=== PATIENT | female | born 1995 | race Hispanic/Latino ===

== ENCOUNTER 2021-12-19 15:30 | Emergency (ER) | payer OTHER ==
[~2021-12-19] VITALS: Ht 165.1 cm; Wt 114.9 kg
[2021-12-19] MEDS ORDERED: ACETAMINOPHEN 325 MG TAB PO STA (15:49)
[2021-12-19] MEDS ORDERED: ONDANSETRON ODT4 MG PO (15:54)
[2021-12-19] MEDS ORDERED: CEPHALEXIN500 MG PO (15:54)
[2021-12-19] MEDS ORDERED: ACETAMINOPHEN 325 MG TAB ONE (16:10)
== END 2021-12-19 16:04 | disposition home or self-care (01) ==
LOC: FSED 15:40
DX: O23.41 Unspecified infection of urinary tract in pregnancy, first trimester (principal)
CPT/HCPCS: 81003; 99283